=== PATIENT | female | born 1985 | race Caucasian/White ===

== ENCOUNTER 2017-05-19 08:14 | Emergency (ER) | payer MEDICAID ==
[~2017-05-19] VITALS: Ht 165.1 cm; Wt 142.4 kg
[2017-05-19 08:22] VITALS: BP 152/100
--- NOTE | 2017-05-19 08:26 | NUR ---
PATIENT TO BED 3 AT THIS TIME.
--- NOTE | 2017-05-19 08:30 | NUR ---
Note undone in EDM - 05/19/17 at 0831 by ALICIA Patient discharged with v/s stable. Written and verbal after care instructions given and explained to parent/guardian. Parent/Guardian verbalized understanding of instructions. Carried with by parent. All questions addressed prior to discharge. ID band removed. Parent/Guardian advised to follow up with PMD. Rx of ZOFRAN given. Parent/Guardian educated on indication of medication including possible reaction and side effects. Opportunity to ask questions provided and answered.
--- NOTE | 2017-05-19 08:45 | NUR ---
31F BIB SELF C/O "SHARP" 9/10 CONSTANT LEFT KNEE PAIN X YESTERDAY; PT DENIES ANY TRAUMA OR INJURY TO KNEE AT THIS TIME; NO SWELLING NOTED TO L KNEE; LIMITED ROM TO L KNEE; CMS AND SKIN INTACT TO BL LEGS; SKIN IS PINK/WARM/DRY; AAOX4 WITH EVEN AND STEADY GAIT;RR ARE EVEN AND UNLABORED;VSS; PATIENT POSITIONED FOR COMFORT; HOB ELEVATED; BEDRAILS UP X2; BED DOWN. ER MD MADE AWARE OF PT STATUS.
[2017-05-19] MEDS ORDERED: KETOROLAC 60 MG/2 ML VIAL IM ONE (08:50)
--- NOTE | 2017-05-19 09:05 | NUR ---
XRAY BY BEDSIDE
[2017-05-19 09:38] VITALS: BP 140/90
== END 2017-05-19 08:26 | disposition home or self-care (01) ==
LOC: MED 08:14
DX: M25.562 Pain in left knee (principal); J45.909 Unspecified asthma, uncomplicated; E11.9 Type 2 diabetes mellitus without complications; I10 Essential (primary) hypertension
CPT/HCPCS: 73562; 81025; 96372; 99284; J1885; Q0092

== ENCOUNTER 2019-10-07 11:14 | Inpatient (IN) | payer MEDICAID ==
[~2019-10-07] VITALS: Ht 165.1 cm; Wt 158.3 kg
[2019-10-07 11:26] VITALS: BP 135/62
--- NOTE | 2019-10-07 11:33 | NUR ---
Patient ambulated to bed 8. RN evaluating patient at bedside.
--- NOTE | 2019-10-07 11:42 | NUR ---
34 Y/F PRESENTS TO ED AMBULATORY FOR WORSENING SOB X 2 DAY. PT ON BREATHING TX AT HOME LAST ONE WAS TWO DAYS AGO. PT WAS SEEN IN URGENT CARE X 2 DAY AND DX WITH L SIDED PNA. PT CURRENTLY TAKING ATB, NASAL SPRAY AND COUGH RX. SX HAVE BEEN GOING ON FOR 5 DAY CONSISTING OF SOB, B LEG WEAKNESS, PRODUCTIVE COUGH WITH GREEN SPUTUM, AND POP. SON SICK WITH ALLERGIES AT HOME. EXPIRATORY WHEEZES HEARD THROUGHOUT, UNLABORED EVEN RESPIRATION. 02 SAT 95 ON RA. HX- ASTHMA, HTN, AND SLEEP APNEA NKDA
--- NOTE | 2019-10-07 11:44 | NUR ---
field support technician at bedside.
--- NOTE | 2019-10-07 11:54 | NUR ---
PT PLACED ON 3 L NC. SATS CONTINUED TO DROP TO 91%
--- NOTE | 2019-10-07 11:55 | NUR ---
RADIOLOGY AT BEDSIDE.
--- NOTE | 2019-10-07 13:08 | NUR ---
Dr. Cuello is evaluating the patient at bedside.
[2019-10-07] MEDS ORDERED: KETOROLAC 60 MG/2 ML VIAL IM ONE (13:10)
[2019-10-07] MEDS ORDERED: ALBUTEROL 0.083% 2.5 MG/3 ML NEBU INH ONE ×2 (13:10→13:50)
[2019-10-07] MEDS ORDERED: predniSONE 20 MG TAB PO ONE (13:10)
[2019-10-07] MEDS ORDERED: ALBUTEROL SULFATE/IPRATROPIU 3 ML SOL IH ONE ×2 (13:10→13:50)
--- NOTE | 2019-10-07 13:15 | NUR ---
PER DR. WOODWARD PT TO BE TAKEN OFF , O2SAT AT 93 ON RA
--- NOTE | 2019-10-07 13:32 | NUR ---
TORADOL IM AND PREDNISONE PO GIVEN. RT AT BEDSIDE ADMINISTERING BREATHING TX.
--- NOTE | 2019-10-07 13:50 | NUR ---
PTS 02 SAT CONTINUES TO DROP TO 88% ON RA. DR WOODWARD NOTIFIED. VERBAL ORDER FOR ANOTHER BREATHING TX
--- NOTE | 2019-10-07 14:02 | NUR ---
LAB AT BEDSIDE.
[2019-10-07 14:14] LABS: BASOPHILS % (AUTO) 0.3 % (0.0-2.0); EOSINOPHILS % (AUTO) 0.7 % (0.0-4.0); HEMATOCRIT 39.3 % (36-48); HEMOGLOBIN 12.2 g/dL (12.0-16.0); LYMPHOCYTES # (AUTO) 3.3 K/uL (2.5-16.5); LYMPHOCYTES % (AUTO) 52.7 % (20.5-51.1); MEAN CORPUSCULAR HEMOGLOBIN 25 pg (27-31); MEAN CORPUSCULAR HGB CONC 31 g/dL (33-37); MEAN CORPUSCULAR VOLUME 79.7 fL (80-94); NEUTROPHILS # (AUTO) 1.9 K/uL (1.8-7.7); NEUTROPHILS % (AUTO) 30.3 % (42.2-75.2); PLATELET COUNT (AUTO) 298 K/uL (140-450); RED BLOOD CELL COUNT(AUTO) 4.93 MIL/uL (4.20-5.40); WHITE BLOOD COUNT (AUTO) 6.3 K/uL (4.8-10.8)
--- NOTE | 2019-10-07 14:20 | NUR ---
RT AT BEDSIDE FOR BREATHING TX
--- NOTE | 2019-10-07 14:25 | NUR ---
respiratory at bedside administering breathing tx.
[2019-10-07 14:28] LABS: ANION GAP 8.5 (8-16); CARBON DIOXIDE 33.7 mmol/L (21-32); CREATININE 0.7 mg/dL (0.6-1.3); POTASSIUM 4.2 mmol/L (3.5-5.1)
--- NOTE | 2019-10-07 14:43 | NUR ---
PT REPORTS SOB IMPROVED AFTER BREATHING TX. NADR.
[2019-10-07] MEDS ORDERED: HYDR-132 PO (14:58)
--- NOTE | 2019-10-07 15:00 | NUR ---
Dr. Cuello is evaluating the patient at bedside.
[2019-10-07] MEDS ORDERED: AMOX500C25 PO ×2 (15:04→15:05)
[2019-10-07] MEDS ORDERED: ACETAMINOPHEN 325 MG TAB PO PRN (15:20)
[2019-10-07] MEDS ORDERED: ONDANSETRON 4 MG/2 ML VIAL IM/IVP PRN (15:20)
[2019-10-07] MEDS ORDERED: HYDROcodone/APAP 7.5/325 MG 1 TAB PO PRN (15:20)
[2019-10-07] MEDS: NACL 0.9% 1,000 ML IV SCH (15:20)
--- NOTE | 2019-10-07 15:26 | NUR ---
RESIDENT AT BEDSIDE
[2019-10-07] MEDS ORDERED: ALBUTEROL SULFATE/IPRATROPIU 3 ML SOL IH PRN (15:40)
[2019-10-07 15:57] LABS: ALBUMIN 3.1 g/dL (3.4-5.0); ANION GAP 13.6 (8-16); CARBON DIOXIDE 31.7 mmol/L (21-32); CREATININE 0.7 mg/dL (0.6-1.3); POTASSIUM 4.3 mmol/L (3.5-5.1); TOTAL BILIRUBIN 0.2 mg/dL (0.0-1.0)
[2019-10-07 16:03] LABS: FREE T4 (FREE THYROXINE) 0.95 ng/dL (0.76-1.46); PHOSPHORUS 3.2 mg/dL (2.5-4.9); THYROID STIMULATING HORMONE 1.26 uIU/mL (0.34-3.74)
--- NOTE | 2019-10-07 16:05 | NUR ---
Patient will be admitted to care of DR. BUSTILLOS . Admited to Med/Surg. Will go to room 120 B. Belongings list completed. Report to ANAND ROGERS.
[2019-10-07 16:15] VITALS: BP 113/61
--- NOTE | 2019-10-07 16:15 | NUR ---
RECEIVED PT FROM ER NURSE NEY. PT IS AWAKE AND ALERT, NO S/S OF DISTRESS, ON 2L O2 NC. PT IS AMBULATORY. IV SITE R HAND 20 G. SKIN IS INTACT. NARES SWABBED FOR MRSA. VS UPON ADMISSION: BP 113/61, HR 90, O2 92%, TEMP 97.9, RR 20. CALL LIGHT GIVEN WITHIN REACH.
[2019-10-07 16:29] LABS: CKMB RELATIVE INDEX 0.4 (0.0-2.5); CREATINE KINASE MB 0.8 ng/mL (0-3.6)
[2019-10-07] MEDS ORDERED: guaiFENesin DM 200/20 MG-10 ML 10 ML UDC PO PRN (16:30)
--- NOTE | 2019-10-07 18:15 | NUR ---
PT EATING DINNER, FAMILY AT BEDSIDE, NO S/S OF DISTRESS.
[2019-10-07] MEDS: AZITHROMYCIN 250 MG in DEXTROSE 5% 250 ML IV SCH (18:20)
[2019-10-07] MEDS: ALBUTEROL SULFATE/IPRATROPIU 3 ML SOL IH SCH (19:14)
--- NOTE | 2019-10-07 19:20 | NUR ---
ENDORSED PT TO PLUMBER MAINTENANCE NURSE IN STABLE CONDITION
--- NOTE | 2019-10-07 19:21 | NUR ---
RECEIVED PT FROM DAY SHIFT NURSE. PT NO SOB NOTED. BREATHING EVEN AND UNLABORED WITH 2LPM O2 VIA NC. SKIN INTACT, WARM AND DRY TO TOUCH. IV SITE ON RH, 20G, PATENT, INTACT, AND ASYMPTOMATIC. POC REVIEWED AND DISCUSS WITH PT, PT VERBALIZED UNDERSTANDING. BED IN LOW POSITION, CALL LIGHT WITHIN REACH.
[2019-10-07] MEDS ORDERED: KETOROLAC 15 MG/ML VIAL IVP PRN (19:30)
--- NOTE | 2019-10-07 20:00 | NUR ---
PLACED PATIENT ON CPAP OF 5CM VIA NASAL MASK. PATIENT DID NOT WANT TO WEAR IT. PATIENT SAID ITS HARD TO BREATH WITH IT ON
--- NOTE | 2019-10-07 21:16 | NUR ---
GIVEN HEPARIN MD ORDERED. PT TOLERATED WELL.
--- NOTE | 2019-10-07 23:00 | NUR ---
PT AWAKE, LYING IN BED, WATCHING TV. NO ACUTE DISTRESS NOTED.
[2019-10-08] VITALS: BP 122/59
--- NOTE | 2019-10-08 02:36 | NUR ---
PT SLEEPING IN BED COMFORTABLY. NO ACUTE DISTRESS NOTED.
--- NOTE | 2019-10-08 04:45 | NUR ---
PT SLEEPING IN BED COMFORTABLY. NO ACUTE DISTRESS NOTED.
--- NOTE | 2019-10-08 07:07 | NUR ---
PT IN STABLE CONDITION, ENDORSED PT TO DAY SHIFT NURSE FOR CONTINUOUS CARE.
--- NOTE | 2019-10-08 07:22 | NUR ---
RECEIVED REPORT FROM NIGHT NURSE. PT IN BED ASLEEP, NO DISTRESS NOTED. RESPIRATIONS EVEN AND UNLABORED ON O2 2L NC. IV IN PLACE IN RIGHT HAND 20G PATENT AND ASYMPTOMATIC INFUSING PER ORDER. SKIN INTACT, AMBULATORY. REGULAR DIET. SAFETY MEASURES IN PLACE. CALL LIGHT WITHIN REACH, BED IN LOW POSITION. WILL CONTINUE TO MONITOR.
[2019-10-08 07:35] LABS: BILIRUBIN,URINE NEGATIVE (NEGATIVE); BLOOD, URINE NEGATIVE (NEGATIVE); COLOR,URINE YELLOW (YELLOW); LEUKOCYTE ESTERASE ,URINE NEGATIVE (NEGATIVE); NITRITE, URINE NEGATIVE (NEGATIVE); UGLUCOSE 2+ (NEGATIVE)
[2019-10-08 07:42] LABS: BARBITURATE, URINE NEG. ng/ml (NEG <=200); BENZODIAZEPINE, URINE NEG. ng/mL (NEG <=200); CANNABINOID, URINE NEG. ng/mL (NEG <=50); COCAINE, URINE NEG. ng/mL (NEG <=300); OPIATE, URINE NEG. ng/mL (NEG <=2000); PHENCYCLIDINE SCREEN,URINE NEG. ng/mL (NEG <=25)
[2019-10-08 07:50] LABS: APPEARANCE,URINE SLIGHTLY HAZY (CLEAR)
[2019-10-08 07:52] LABS: RBC,URINE 0-5 /HPF (0-5); WBC,URINE 0-5 /HPF (0-5)
[2019-10-08 07:53] LABS: YEAST,URINE Moderate /HPF (None Seen)
[2019-10-08 07:59] LABS: BASOPHILS % (AUTO) 0.2 % (0.0-2.0); EOSINOPHILS % (AUTO) 0.1 % (0.0-4.0); HEMATOCRIT 38.6 % (36-48); HEMOGLOBIN 12.1 g/dL (12.0-16.0); LYMPHOCYTES # (AUTO) 2.1 K/uL (2.5-16.5); LYMPHOCYTES % (AUTO) 31.6 % (20.5-51.1); MEAN CORPUSCULAR HEMOGLOBIN 25 pg (27-31); MEAN CORPUSCULAR HGB CONC 31 g/dL (33-37); MONOCYTES # (AUTO) 1.2 K/uL (0.8-1.0); MONOCYTES % (AUTO) 17.8 % (1.7-9.3); NEUTROPHILS # (AUTO) 3.3 K/uL (1.8-7.7); NEUTROPHILS % (AUTO) 50.3 % (42.2-75.2); PLATELET COUNT (AUTO) 318 K/uL (140-450); RED BLOOD CELL COUNT(AUTO) 4.89 MIL/uL (4.20-5.40); RED CELL DISTRIBUTION WIDTH 18.3 % (11.6-13.7); WHITE BLOOD COUNT (AUTO) 6.6 K/uL (4.8-10.8)
[2019-10-08 08:00] VITALS: BP 133/73
[2019-10-08] MEDS: NACL 0.9% 1,000 ML IV SCH ×2 (08:00→13:00)
[2019-10-08 08:10] LABS: ANION GAP 9.3 (8-16); CARBON DIOXIDE 33.7 mmol/L (21-32); CREATININE 0.5 mg/dL (0.6-1.3)
[2019-10-08 08:20] LABS: CHOL/HDL RATIO 3.5 (1-4.5)
--- NOTE | 2019-10-08 08:33 | NUR ---
PATIENT HAS BEEN SCREENED AND CATEGORIZED MODERATE NUTRITION RISK. PATIENT WILL BE SEEN WITHIN 3-5 DAYS OF ADMISSION. 10/10/2019-10/12/[address]
[2019-10-08] MEDS: ALBUTEROL SULFATE/IPRATROPIU 3 ML SOL IH SCH ×3 (08:59→20:14)
[2019-10-08 09:14] LABS: MAGNESIUM 2.1 mg/dL (1.8-2.4); PHOSPHORUS 3.3 mg/dL (2.5-4.9)
[2019-10-08] MEDS: LISINOPRIL 10 MG TAB PO SCH (09:50)
[2019-10-08] MEDS: LACTOBACILLUS RHAMNOSUS GG 1 EACH CAP PO SCH (09:52)
[2019-10-08] MEDS: HYDROCHLOROTHIAZIDE 25 MG TAB PO SCH (09:52)
--- NOTE | 2019-10-08 09:52 | NUR ---
MEDICATIONS ADMINISTERED PER ORDER. PT TOLERATED WELL, NO DISTRESS NOTED, PT DENIES PAIN. SAFETY MEASURES IN PLACE. CALL LIGHT WITHIN REACH, WILL CONTINUE TO MONITOR.
[2019-10-08] MEDS ORDERED: FLUCONAZOLE 100 MG TAB PO SCH (10:00)
--- NOTE | 2019-10-08 12:09 | NUR ---
PT EDUCATED ON THE USE OF THE INCENTIVE SPIROMETER. PT DENIES PAIN, NO DISTRESS NOTED. SAFETY MEASURES IN PLACE. CALL LIGHT WITHIN REACH.
--- NOTE | 2019-10-08 14:12 | NUR ---
PT IN BED AWAKE, NO DISTRESS NOTED. DENIES PAIN. SAFETY MEASURES IN PLACE. BED IN LOW POSITION. WILL CONTINUE TO MONITOR.
[2019-10-08 16:00] VITALS: BP 117/59
--- NOTE | 2019-10-08 16:00 | NUR ---
MEDICATIONS ADMINISTERED PER ORDER. PT TOLERATED WELL, NO DISTRESS NOTED. WILL CONTINUE TO MONITOR.
[2019-10-08] MEDS: AZITHROMYCIN 250 MG in DEXTROSE 5% 250 ML IV SCH (16:47)
--- NOTE | 2019-10-08 18:03 | NUR ---
PT IN BED SLEEPING, NO DISTRESS NOTED, RESPIRATIONS EVEN AND UNLABORED. SAFETY MEASURES IN PLACE. BED IN LOW POSITION. WILL CONTINUE TO MONITOR.
--- NOTE | 2019-10-08 19:17 | NUR ---
PT IN BED AOX1, SKIN INTACT WITH IV SITE R HAND 20G INTACT AND RUNNING NS AT 60MLS/HR. PT HAS N/C WITH 2 LITERS 02 VIA N/C. LUNG SOUNDS DIMINISHED WITH CRACKLES PT DENIES PAIN V/S FOLLOWS;T 97.7 P 95 R 20 B/P 97/54 02 95% WITH 2 LITERS VIA N/C. RT AT BEDSIDE EVALUATING PT AND ADMINISTERING NEB TREATMENT. ALL UNIVERSAL PRECAUTIONS IN PLACE.
--- NOTE | 2019-10-08 19:17 | NUR ---
REPORT GIVEN TO NIGHT NURSE FOR CONTINUITY OF CARE.
--- NOTE | 2019-10-08 20:22 | NUR ---
RECEIVED PT ON 2L NC WITH SP02 OF 95% AND CLEAR DIMINISHED BREATH SOUNDS ON UPPER LOBES AND CRACKLES ON LOWER LOBES. NO RESPIRATORY DISTRESS NOTED AT THIS TIME; HR 74, RR 18. HHN TX GIVEN ORDERED WITH NO ADVERSE REACTION. WILL CONTINUE TO MONITOR PT
--- NOTE | 2019-10-08 21:00 | NUR ---
PT GIVEN ORDERED HEPARIN PLATELETS 165 PT IS 10 INR IS 1.7. RISKS , BENEFITS AND SIDE EFFECTS OF MEDICATION PROVIDED AT BEDSIDE. PT DENIES ANY PAIN OR SOB. RESPIRATIONS EVEN AND UNLABORED. UNIVERSAL FALLS PRECAUTIONS IN PLACE.
[2019-10-09] VITALS: BP 132/66
--- NOTE | 2019-10-09 | NUR ---
P P R T R IN BED NO C/ VOICED RESPIRATIONS EVEN AND UNLABORED WITH 2 LITERS VIA N/C. IV SITE INTACT AND RUNNING /FLUID B/P S OR B/P ORDERED. V/S FOLLOWS; T 97.9 P 68 R 20 B/P 132/66 02 95% WITH 2 LITERS ALL UNIVERSAL FALLS PRECAUTIONS IN PLACE.
--- NOTE | 2019-10-09 02:45 | NUR ---
DUE TO CHANGE OF ASSIGNMENT, REPORT GIVEN TO SPRING MACHINE OPERATOR FALLON FOR CONTINUITY OF CARE, PT IN BED ASLEEP RESPIRATIONS EVEN AND UNLABORED.
--- NOTE | 2019-10-09 02:45 | NUR ---
RECEIVED REPORT FROM FALLON FOR CONTINUITY OF CARE, PT SLEEPING, NO SIGN OF DISTRESS.
--- NOTE | 2019-10-09 04:00 | NUR ---
PT SLEEPING QUIETLY, NO SIGN OF RESPIRATORY DISTRESS.
--- NOTE | 2019-10-09 06:00 | NUR ---
RESTING, COMFORTABLY, NO SIGNS OF RESPIRATORY DISTRESS.
--- NOTE | 2019-10-09 07:10 | NUR ---
Received report from pm nurse Mary Ann. Pt resting in bed, no signs of distress, respirations even & nonlabored. Call light within reach.
[2019-10-09 07:16] LABS: BASOPHILS % (AUTO) 0.3 % (0.0-2.0); EOSINOPHILS # (AUTO) 0.1 K/uL (0-0.4); EOSINOPHILS % (AUTO) 0.9 % (0.0-4.0); HEMATOCRIT 37.7 % (36-48); HEMOGLOBIN 11.6 g/dL (12.0-16.0); LYMPHOCYTES # (AUTO) 2.9 K/uL (2.5-16.5); MEAN CORPUSCULAR HEMOGLOBIN 25 pg (27-31); MEAN CORPUSCULAR HGB CONC 31 g/dL (33-37); MEAN CORPUSCULAR VOLUME 79.8 fL (80-94); MONOCYTES # (AUTO) 0.8 K/uL (0.8-1.0); MONOCYTES % (AUTO) 10.3 % (1.7-9.3); NEUTROPHILS % (AUTO) 51.5 % (42.2-75.2); PLATELET COUNT (AUTO) 302 K/uL (140-450); RED BLOOD CELL COUNT(AUTO) 4.73 MIL/uL (4.20-5.40); RED CELL DISTRIBUTION WIDTH 17.9 % (11.6-13.7); WHITE BLOOD COUNT (AUTO) 7.8 K/uL (4.8-10.8)
[2019-10-09 07:28] LABS: CARBON DIOXIDE 33.6 mmol/L (21-32); CREATININE 0.6 mg/dL (0.6-1.3); POTASSIUM 4.6 mmol/L (3.5-5.1)
[2019-10-09] MEDS: ALBUTEROL SULFATE/IPRATROPIU 3 ML SOL IH SCH (07:43)
[2019-10-09 08:00] VITALS: BP 129/67
[2019-10-09] MEDS ORDERED: LEVO750T2 PO (08:37)
[2019-10-09] MEDS ORDERED: LACT1.4C PO (08:37)
[2019-10-09] MEDS ORDERED: METH4TAB3 PO (08:37)
[2019-10-09] MEDS: HYDROCHLOROTHIAZIDE 25 MG TAB PO SCH (09:02)
[2019-10-09] MEDS: LACTOBACILLUS RHAMNOSUS GG 1 EACH CAP PO SCH (09:02)
[2019-10-09] MEDS: LISINOPRIL 10 MG TAB PO SCH (09:03)
[2019-10-09 10:09] LABS: PHOSPHORUS 3.8 mg/dL (2.5-4.9)
[2019-10-09] MEDS ORDERED: INFLUENZA VACCINE QUAD 0.5 ML SYR IMVAC PRN (10:40)
--- NOTE | 2019-10-09 13:00 | NUR ---
Verbal and written discharge instructions provided to pt. Pt verbalized understanding & agree with discharge teachings. Right hand IV discontinued, cannula intact. Site with min bleeding, covered with dry gauze and tape. Pt's family at bedside will transport pt home.
--- NOTE | 2019-10-09 13:35 | NUR ---
Pt ambulated off unit with steady gait, accompanied by family. Pt stable. All belongings with pt upon departure.
== END 2019-10-09 13:35 | disposition home or self-care (01) | DRG 139 ==
LOC: MED 11:14 → MTU 15:23
PROVIDERS: ADMIT General Practice; ATTEND General Practice
DX: J18.9 Pneumonia, unspecified organism (principal); E66.2 Morbid (severe) obesity with alveolar hypoventilation; Z68.43 Body mass index [BMI] 50.0-59.9, adult; E11.9 Type 2 diabetes mellitus without complications; B37.49 Other urogenital candidiasis; I10 Essential (primary) hypertension; J45.909 Unspecified asthma, uncomplicated; Z23 Encounter for immunization; Z88.1 Allergy status to other antibiotic agents; Z88.8 Allergy status to other drugs, medicaments and biological substances; Z90.49 Acquired absence of other specified parts of digestive tract
CPT/HCPCS: 36415; 71045; 80048; 80053; 80305; 81001; 81025; 82550; 82553; 83036; 83605; 83690; 83735; 83880; 84100; 84439; 84443; 85025; 85610; 85730; 87081; 87804; 94640; 96372; 99285; J0456; J0696; J1644; J1885; J7030; J7060; J7512; J7613; J7620; Q0092